=== PATIENT | male | born 1960 | race Caucasian/White ===

== ENCOUNTER 2021-12-17 07:14 | Day surgery (SDC) | payer OTHER | END 2021-12-17 10:30 | disposition home or self-care (01) | LOC: AMB-ENDOS 07:14 | PROVIDERS: ATTEND Internal Medicine Gastroenterology | DX: C15.8 Malignant neoplasm of overlapping sites of esophagus (principal) ==

== ENCOUNTER 2022-11-03 14:44 | Inpatient (IN) | payer OTHER ==
[~2022-11-03] VITALS: Ht 177.8 cm; Wt 55.3 kg
[2022-11-03] MEDS ORDERED: ZOLOFT50 MG (17:56)
[2022-11-03] MEDS ORDERED: AMLODIPINE BESY10 MG (17:57)
[2022-11-03] MEDS ORDERED: PEPCID AC20 MG (17:57)
[2022-11-03] MEDS ORDERED: NASAL MIST126 ML (17:57)
[2022-11-03] MEDS ORDERED: PROTONIX40 MG (17:57)
[2022-11-06] MEDS ORDERED: AMLODIPINE BESY10 MG PO (11:53)
[2022-11-06] MEDS ORDERED: SERTRALINE HCL50 MG PO (11:54)
[2022-11-06] MEDS ORDERED: KETOROLAC30 MG/1 M2 IV (11:54)
== END 2022-11-06 14:08 | disposition home or self-care (01) | DRG 812 ==
LOC: SURH 14:44 → SEC-K 14:44 → SURH 19:15
PROVIDERS: ADMIT Internal Medicine Hematology & Oncology; ATTEND Internal Medicine Hematology & Oncology
PROC: 30233N1 Transfusion of Nonautologous Red Blood Cells into Peripheral Vein, Percutaneous Approach (ICD-10-PCS; principal; 2022-11-04)
DX: D50.0 Iron deficiency anemia secondary to blood loss (chronic) (principal); C15.5 Malignant neoplasm of lower third of esophagus; C78.00 Secondary malignant neoplasm of unspecified lung; M54.15 Radiculopathy, thoracolumbar region; D63.0 Anemia in neoplastic disease; Z20.822 Contact with and (suspected) exposure to COVID-19

== ENCOUNTER 2023-02-21 10:27 | Inpatient (IN) | payer OTHER ==
[~2023-02-21] VITALS: Ht 165.1 cm; Wt 59.0 kg
[~2023-02-21 10:27] MED LIST: AMLODIPINE BESY10 MG; AMLODIPINE BESY10 MG PO; KETOROLAC30 MG/1 M2 IV; NASAL MIST126 ML; PEPCID AC20 MG; PROTONIX40 MG; SERTRALINE HCL50 MG PO; ZOLOFT50 MG
--- NOTE | 2023-02-21 11:32 | NUR ---
PTE ALERTA Y ORIENTADO X3 EN COMPANIA DE [facility]. PTE TIENE REFERIDO POR DR. MCKENNA CUAL REFIERE QUE PTE ESTA DESHIDRATADO. PIDE LABS Y QUE SE LE LLAME CON LOS RESULTADOS. PTE A PRESENTADO DOLOR ABDOMINAL POR LOS PASADOS 3 MCCABE.
--- NOTE | 2023-02-21 13:33 | NUR ---
PACIENTE SE LE REALIZA ADMINISTRACION DE MEDICAMENTOS POR [facility] MEDICA, SE ORIENTA A PACIENTE SOBRE USO Y EFECTOS DE LOS MEDICAMENTOS A SER ADMINISTRADOS.
--- NOTE | 2023-02-21 13:44 | NUR ---
PACIENTE SE LE REALIZA MUESTRA DE TIPO Y LESLEE.
[2023-03-02] MEDS ORDERED: GABAPENTIN100 MG PO (18:46)
[2023-03-02] MEDS ORDERED: AMLODIPINE BESY10 MG PO (18:47)
[2023-03-02] MEDS ORDERED: GABAPENTIN300 MG PO (18:47)
[2023-03-02] MEDS ORDERED: SERTRALINE HCL50 MG PO (18:47)
[2023-03-02] MEDS ORDERED: CARAFATE1 GM PO (18:48)
[2023-03-02] MEDS ORDERED: PERCOCET 5-3251 EACH PO (18:51)
== END 2023-03-02 19:45 | disposition home or self-care (01) | DRG 375 ==
LOC: ER 10:27 → MEDJ 19:25
PROVIDERS: ADMIT Internal Medicine Hematology & Oncology; ATTEND Internal Medicine Hematology & Oncology
PROC: 8E0ZXY6 Isolation (ICD-10-PCS; principal; 2023-02-21)
PROC: 30243N1 Transfusion of Nonautologous Red Blood Cells into Central Vein, Percutaneous Approach (ICD-10-PCS; 2023-02-21)
PROC: BW21YZZ Computerized Tomography (CT Scan) of Abdomen and Pelvis using Other Contrast (ICD-10-PCS; 2023-02-21)
PROC: B54MZZZ Ultrasonography of Right Upper Extremity Veins (ICD-10-PCS; 2023-03-01)
DX: C15.5 Malignant neoplasm of lower third of esophagus (principal); C16.9 Malignant neoplasm of stomach, unspecified; E44.0 Moderate protein-calorie malnutrition; D50.0 Iron deficiency anemia secondary to blood loss (chronic); D64.9 Anemia, unspecified; D63.0 Anemia in neoplastic disease; I80.9 Phlebitis and thrombophlebitis of unspecified site; Z68.21 Body mass index [BMI] 21.0-21.9, adult; Z92.21 Personal history of antineoplastic chemotherapy